=== PATIENT | male | born 1940 | race Caucasian/White ===

== ENCOUNTER 2024-03-04 05:03 | Emergency (ER) | payer MEDICARE, OTHER, SELFPAY ==
--- NOTE | 2024-03-04 05:11 | ECG_ITS ---
Test Date: 2024-03-04 05:18:20 Measurements Intervals [place] Rate: 58 P: 47 SD: 227 QRS: 1 QRSD: 77 T: 41 QT: 392 QTc: 388 Interpretive Statements SINUS BRADYCARDIA WITH FIRST DEGREE AV BLOCK No previous ECG available for comparison Electronically Signed On 03-04-2024 15:20:37 SUPPLY TECH by Javi Sultana M.D.
[2024-03-04 05:12] VITALS: BP 150/77; PULSE 63; RESP 15; TEMP 36.6; O2SAT 98
[2024-03-04 05:38] LABS: Basophils Percent Auto 0.3 % (0.2-1.2); Eosinophils Absolute Auto 0.3 K/mm3 (0-0.3); Eosinophils Percent Auto 4.5 % (0-4.4); Hematocrit 42.8 % (42.0-52.0); Hemoglobin 14.1 g/dL (14.0-18.0); Immature Granulocyte Absolute 0.02 K/mm3 (0.00-0.031); Immature Granulocyte Percent A 0.3 % (0-0.5); Lymphocytes Absolute Auto 1.88 K/mm3 (0.9-3.2); Lymphocytes Percent Auto 26.7 % (18.3-44.2); Mean Corpuscular HGB Conc 32.9 g/dl (32-36); Mean Corpuscular Volume 91.1 fl (80-100); Mean Platelet Volume 10.7 fl (7.4-10.4); Monocytes Absolute Auto 0.9 K/mm3 (0.1-0.6); Monocytes Percent Auto 12.2 % (2.6-8.5); Platelet Count Result 195 k/mm3 (150-375); Red Cell Distribution Width 12.9 % (11.5-14.5); White Blood Count 7.1 K/mm3 (4.5-10.0)
[2024-03-04 06:04] LABS: Alanine Aminotransferase 28 U/L (6-50); Albumin Level 3.8 g/dL (3.5-5.1); Alkaline Phosphatase 60 U/L (38-126); Anion Gap 6 mmol/L (4-12); Aspartate Amino Transferase 32 U/L (17-59); Bilirubin,Total 0.8 mg/dL (0.2-1.3); Blood Urea Nitrogen 19 mg/dL (9-20); Calcium 10.1 mg/dL (8.4-10.2); Carbon Dioxide 26 mmol/L (22-30); Chloride 105 mmol/L (98-107); Estimated CRCL calculation 79 ml/min; Estimated Glomerular Filt Rate > 60; Glucose 105 mg/dL (65-110); Potassium 3.9 mmol/L (3.4-5.0); Sodium 137 mmol/L (137-145)
[2024-03-04 06:15] LABS: Troponin I < 0.012 ng/mL (0.000-0.034)
--- NOTE | 2024-03-04 07:05 | ED.GENADULT ---
HPI - General Adult General Chief complaint: Extremity Injury, Upper <Diego Castillo MD - Last Filed: 03/04/24 07:12> Stated complaint: right arm pain <Diego Castillo MD - Last Filed: 03/04/24 07:12> Time Seen by Provider: 03/04/24 05:23 <Diego Castillo MD - Last Filed: 03/04/24 07:12> History of Present Illness HPI narrative: Patient is an 83-year-old male who presents to the emergency department this evening complaining of right arm pain. Patient states the pain started at 3:30 a.m. this morning when he woke up. Patient doctor his doctor who told him to come to the emergency department for further evaluation given his history of coronary artery disease with multiple stents. Patient states that he has absolutely no chest pain, no shortness of breath, no nausea or vomiting, states that the pain in his right arm is along his right shoulder, right elbow and right wrist mainly at the base of the thumb/1st digit. Patient admits that the pain is reproducible with certain movements. Admits that yesterday he did shovel some snow but states that he did not have any symptoms yesterday after shoveling snow. Denies any additional symptoms or concerns at this time. <Diego Castillo MD - Last Filed: 03/04/24 07:12> Related Data Home medications: Home Medications ?Medication ?Instructions ?Recorded ?Confirmed ?Last Taken ?Type ascorbic acid (vitamin C) 1,000 mg 1 g PO DAILY 11/03/21 10/24/23 Unknown History capsule aspirin 81 mg tablet,delayed 81 mg PO DAILY 11/03/21 10/24/23 Unknown History release clopidogrel 75 mg tablet 75 mg PO DAILY 11/03/21 10/24/23 Unknown History coenzyme Q10 100 mg capsule (Co 100 mg PO DAILY 11/03/21 10/24/23 Unknown History Q-10) cholecalciferol (vitamin D3) 125 5,000 unit PO DAILY 03/16/22 10/24/23 Unknown History mcg (5,000 unit) capsule ezetimibe 10 mg tablet (Zetia) 5 mg PO DAILY 03/16/22 10/24/23 Unknown History fexofenadine 60 mg tablet ([place] 60 mg PO Q12H PRN allergy 03/16/22 10/24/23 Unknown History Allergy) diclofenac sodium 1 % topical gel 2 g topical QID 10/24/23 10/24/23 Unknown History famotidine-Ca carb-mag hydrox 10 1 tablet PO DAILY PRN indigestion 10/24/23 10/24/23 Unknown History mg-800 mg-165 mg chewable tablet (Pepcid Complete) sildenafil 100 mg tablet 100 mg PO DAILY PRN 10/24/23 10/24/23 Unknown History sildenafil 100 mg tablet 100 mg PO DAILY PRN sexual activity 10/24/23 10/24/23 Unknown History <Diego Castillo MD - Last Filed: 03/04/24 07:12> Allergies/adverse reactions: Allergies Allergy/AdvReac Type Severity Reaction Status Date / Time No Known Allergies Verified 09/03/09 11:28 <Diego Castillo MD - Last Filed: 03/04/24 07:12> Review of Systems Review of Systems: All systems are reviewed and are negative unless stated otherwise in the HPI. <Diego Castillo MD - Last Filed: 03/04/24 07:12> PMFSH Past Medical History Medical History: Medical History GERD (gastroesophageal reflux disease) reflux with use of sildenafil Chronic pain of right knee Male erectile dysfunction, unspecified Lipoma of arm (~2022) 2.5 cm lipoma right upper arm biceps area BMI 30.0-30.9,adult At low risk for fall Elevated PSA, less than 10 ng/ml PSA 5.3 on 12/28/2022. PSA 8.4 with 18% free PSA on 10/02/2023. BMI 31.0-31.9,adult COVID-19 (04/27/22) 2nd episode Acute non-recurrent maxillary sinusitis COVID-19 (~08/2021) BMI 32.0-32.9,adult Obesity (BMI 30.0-34.9) Osteoarthritis involving multiple joints on both sides of body Chronic low back pain without sciatica BPH without obstruction/lower urinary tract symptoms Seasonal allergic rhinitis Essential hypertension GFR 92 on 10/02/2023. Atherosclerotic heart disease of [place] coronary artery without angina pectoris (~2003) Acute [facility] with 2 stents in the LAD 2003 with 4 drug-eluting stents in the RCA and PLV in December,. Mixed hyperlipidemia Total cholesterol 113, HDL 39, triglycerides 78, LDL 58 with glucose 98 on 07/06/2022. Total cholesterol 114, HDL 41, triglycerides 58, LDL 60 on 12/28/2022. total cholesterol 119, HDL 48, triglycerides 81, 8 LDL 55 on 10/02/2023. Heart attack Arthritis CAD (coronary artery disease) Allergies <Diego Castillo MD - Last Filed: 03/04/24 07:12> Family History Family History: Family History Mother Asthma Diabetes mellitus Hypertension Heart disease Other Hypertension Cancer <Diego Castillo MD - Last Filed: 03/04/24 07:12> Social History Social History: Social History Smoking status: Former smoker Smoking end date: 02/19/1962 Alcohol intake: current Alcohol use details: Social Substance use: never Substance use type: does not use Lack of Transportation: No Lack of Food: Never True Current Housing: I Have Housing Concerned About Future Housing: No Difficulty Paying Gas/Electric Bills: No Difficulty Paying for Meds: No Currently Unemployed: No Education: Bachelor's Degree Difficulty w/ Childcare or Family Care: No <Diego Castillo MD - Last Filed: 03/04/24 07:12> Exam Narrative: General: Alert, awake, afebrile, in no acute distress. HEENT: PERRL, no rhinorrhea, no post nasal drip, oropharynx clear. Neck: Trachea midline, no JVD, no lymphadenopathy. Cardiovascular: Regular rate and rhythm, no murmurs, rubs or gallops, no peripheral edema. Respiratory: Clear to auscultation bilaterally, no tachypnea, no wheezing, no rhonchi, no rubs, no respiratory distress. Abdomen: Soft, nontender, nondistended, no rebound, no guarding, no peritoneal signs. Musculoskeletal: No joint swelling or deformity, normal muscle tone, tenderness palpation along the base of the right thumb. Skin: No rashes or petechia, no signs of infection. Psychiatric: Alert and oriented, normal behavior and judgment for situation. Neurological: Alert and oriented to person, place, and time. Follows all commands. No focal deficits, speech is clear and fluent. <Diego Castillo MD - Last Filed: 03/04/24 07:12> Course Vital Signs Vital signs: Vital Signs Temperature 36.6 C 03/04/24 05:12 Pulse Rate 63 03/04/24 05:12 Respiratory Rate 15 03/04/24 05:12 Blood Pressure 150/77 H 03/04/24 05:12 Pulse Oximetry 98 03/04/24 05:12 Oxygen Delivery Room Air 03/04/24 05:12 Temperature 36.6 C 03/04/24 05:12 Pulse Rate 67 03/04/24 12:14 Respiratory Rate 16 03/04/24 12:14 Blood Pressure 159/64 H 03/04/24 12:14 Pulse Oximetry 97 03/04/24 12:14 Oxygen Delivery Room Air 03/04/24 05:12 <Diego Castillo MD - Last Filed: 03/04/24 07:12> Vital Signs Temperature 36.6 C 03/04/24 05:12 Pulse Rate 63 03/04/24 05:12 Respiratory Rate 15 03/04/24 05:12 Blood Pressure 150/77 H 03/04/24 05:12 Pulse Oximetry 98 03/04/24 05:12 Oxygen Delivery Room Air 03/04/24 05:12 Temperature 36.6 C 03/04/24 05:12 Pulse Rate 67 03/04/24 12:14 Respiratory Rate 16 03/04/24 12:14 Blood Pressure 159/64 H 03/04/24 12:14 Pulse Oximetry 97 03/04/24 12:14 Oxygen Delivery Room Air 03/04/24 05:12 <Radha Junior MD - Last Filed: 03/04/24 13:06> Medical Decision Making MDM Narrative Medical decision making narrative: PATIENT PRESENTS WITH RIGHT ARM PAIN, AFTER SHOVELING SNOW EKG ON ARRIVAL SHOWED SINUS BRADYCARDIA, PATIENT PATIENT TROPONIN IS WITHIN NORMAL LIMIT TIME 2, REPEATED EKG 3 HOURS LATER SHOWED NO ACUTE ABNORMALITIES. DISCHARGED HOME WITH ARM MUSCULAR PAIN TO TAKE TYLENOL NEEDED <Radha Junior MD - Last Filed: 03/04/24 13:06> Vital Signs Vital Signs: Vital Signs Temperature 36.6 C 03/04/24 05:12 Pulse Rate 63 03/04/24 05:12 Respiratory Rate 15 03/04/24 05:12 Blood Pressure 150/77 H 03/04/24 05:12 Pulse Oximetry 98 03/04/24 05:12 Oxygen Delivery Room Air 03/04/24 05:12 Temperature 36.6 C 03/04/24 05:12 Pulse Rate 67 03/04/24 12:14 Respiratory Rate 16 03/04/24 12:14 Blood Pressure 159/64 H 03/04/24 12:14 Pulse Oximetry 97 03/04/24 12:14 Oxygen Delivery Room Air 03/04/24 05:12 <Diego Castillo MD - Last Filed: 03/04/24 07:12> Vital Signs Temperature 36.6 C 03/04/24 05:12 Pulse Rate 63 03/04/24 05:12 Respiratory Rate 15 03/04/24 05:12 Blood Pressure 150/77 H 03/04/24 05:12 Pulse Oximetry 98 03/04/24 05:12 Oxygen Delivery Room Air 03/04/24 05:12 Temperature 36.6 C 03/04/24 05:12 Pulse Rate 67 03/04/24 12:14 Respiratory Rate 16 03/04/24 12:14 Blood Pressure 159/64 H 03/04/24 12:14 Pulse Oximetry 97 03/04/24 12:14 Oxygen Delivery Room Air 03/04/24 05:12 <Radha Junior MD - Last Filed: 03/04/24 13:06> Lab Data Result diagrams: 03/04/24 05:25 03/04/24 05:25 <Diego Castillo MD - Last Filed: 03/04/24 07:12> Labs: Lab Results 03/04/24 03/04/24 Range/Units 05:25 11:29 WBC 7.1 (4.5-10.0) K/mm3 RBC 4.70 (4.6-6.20) M/mm3 Hgb 14.1 (14.0-18.0) g/dL Hct 42.8 (42.0-52.0) % MCV 91.1 (80-100) fl MCH 30.0 (26-34) pg MCHC 32.9 (32-36) g/dl RDW 12.9 (11.5-14.5) % Plt Count 195 (150-375) k/mm3 MPV 10.7 H (7.4-10.4) fl Immature Gran % (Auto) 0.3 (0-0.5) % Neut % (Auto) 56.0 (45.5-73.1) % Lymph % (Auto) 26.7 (18.3-44.2) % [place] % (Auto) 12.2 H (2.6-8.5) % Eos % (Auto) 4.5 H (0-4.4) % Baso % (Auto) 0.3 (0.2-1.2) % Lymph # (Auto) 1.88 (0.9-3.2) K/mm3 [place] # (Auto) 0.9 H (0.1-0.6) K/mm3 Eos # (Auto) 0.3 (0-0.3) K/mm3 Baso # (Auto) 0.0 (0.0-0.1) K/mm3 Abs Immat Gran (auto) 0.02 (0.00-0.031) K/mm3 Absolute Neuts (auto) 4.0 (1.3-6.7) K/mm3 Absolute Nucleated RBC 0.000 (0.0-0.012) K/mm3 Nucleated RBC % 0.0 (0.0-0.2) % Sodium 137 (137-145) mmol/L Potassium 3.9 (3.4-5.0) mmol/L Chloride 105 (98-107) mmol/L Carbon Dioxide 26 (22-30) mmol/L Anion Gap 6 (4-12) mmol/L BUN 19 (9-20) mg/dL Creatinine 0.64 L (0.7-1.3) mg/dL Estim Creat Clear Calc 79 ml/min Estimated GFR > 60 (59 - ) Glucose 105 (65-110) mg/dL Calcium 10.1 (8.4-10.2) mg/dL Total Bilirubin 0.8 (0.2-1.3) mg/dL AST 32 (17-59) U/L ALT 28 (6-50) U/L Alkaline Phosphatase 60 (38-126) U/L Troponin I < 0.012 < 0.012 (0.000-0.034) ng/mL Total Protein 6.0 L (6.3-8.2) g/dL Albumin 3.8 (3.5-5.1) g/dL <Diego Castillo MD - Last Filed: 03/04/24 07:12> Lab Results 03/04/24 03/04/24 Range/Units 05:25 11:29 WBC 7.1 (4.5-10.0) K/mm3 RBC 4.70 (4.6-6.20) M/mm3 Hgb 14.1 (14.0-18.0) g/dL Hct 42.8 (42.0-52.0) % MCV 91.1 (80-100) fl MCH 30.0 (26-34) pg MCHC 32.9 (32-36) g/dl RDW 12.9 (11.5-14.5) % Plt Count 195 (150-375) k/mm3 MPV 10.7 H (7.4-10.4) fl Immature Gran % (Auto) 0.3 (0-0.5) % Neut % (Auto) 56.0 (45.5-73.1) % Lymph % (Auto) 26.7 (18.3-44.2) % [place] % (Auto) 12.2 H (2.6-8.5) % Eos % (Auto) 4.5 H (0-4.4) % Baso % (Auto) 0.3 (0.2-1.2) % Lymph # (Auto) 1.88 (0.9-3.2) K/mm3 [place] # (Auto) 0.9 H (0.1-0.6) K/mm3 Eos # (Auto) 0.3 (0-0.3) K/mm3 Baso # (Auto) 0.0 (0.0-0.1) K/mm3 Abs Immat Gran (auto) 0.02 (0.00-0.031) K/mm3 Absolute Neuts (auto) 4.0 (1.3-6.7) K/mm3 Absolute Nucleated RBC 0.000 (0.0-0.012) K/mm3 Nucleated RBC % 0.0 (0.0-0.2) % Sodium 137 (137-145) mmol/L Potassium 3.9 (3.4-5.0) mmol/L Chloride 105 (98-107) mmol/L Carbon Dioxide 26 (22-30) mmol/L Anion Gap 6 (4-12) mmol/L BUN 19 (9-20) mg/dL Creatinine 0.64 L (0.7-1.3) mg/dL Estim Creat Clear Calc 79 ml/min Estimated GFR > 60 (59 - ) Glucose 105 (65-110) mg/dL Calcium 10.1 (8.4-10.2) mg/dL Total Bilirubin 0.8 (0.2-1.3) mg/dL AST 32 (17-59) U/L ALT 28 (6-50) U/L Alkaline Phosphatase 60 (38-126) U/L Troponin I < 0.012 < 0.012 (0.000-0.034) ng/mL Total Protein 6.0 L (6.3-8.2) g/dL Albumin 3.8 (3.5-5.1) g/dL <Radha Junior MD - Last Filed: 03/04/24 13:06> ECG Data EKG #1: Attestation: I personally reviewed and interpreted this ECG as follows: <Radha Junior MD - Last Filed: 03/04/24 13:06> ECG completion date: 03/04/24 <Radha Junior MD - Last Filed: 03/04/24 13:06> Interpretation: SECOND EKG TODAY SHOWED SINUS BRADYCARDIA AT 56 BEATS PER MINUTE, COMPARED TO EKG EARLY TODAY NO SIGNIFICANT CHANGES <Radha Junior MD - Last Filed: 03/04/24 13:06> Critical Care Time Critical Care Time Critical Care Time: No <Radha Junior MD - Last Filed: 03/04/24 13:06> Discharge Plan Discharge Clinical Impression: Arm pain, right <Diego Castillo MD - Last Filed: 03/04/24 07:12> Patient Disposition: Home, Self-Care <Diego Castillo MD - Last Filed: 03/04/24 07:12> Condition: Stable <Diego Castillo MD - Last Filed: 03/04/24 07:12> Instructions: Arm Pain (ED) <Diego Castillo MD - Last Filed: 03/04/24 07:12> Additional Instructions: RETURN IF SYMPTOMS ARE WORSENING , CALL YOUR FAMILY PHYSICIAN FOR APPOINTMENT, TAKE TYLENOL NEEDED FOR ACHES AND PAIN, CONTINUE HOME MEDICATIONS. <Diego Castillo MD - Last Filed: 03/04/24 07:12> Patient Language: [place] <Diego Castillo MD - Last Filed: 03/04/24 07:12> Prescriptions: No Action aspirin 81 mg tablet,delayed release (DR/EC) 81 mg PO DAILY clopidogrel 75 mg tablet 75 mg PO DAILY coenzyme Q10 [Co Q-10] 100 mg capsule 100 mg PO DAILY ascorbic acid (vitamin C) 1,000 mg capsule 1 g PO DAILY ezetimibe [Zetia] 10 mg tablet 5 mg PO DAILY cholecalciferol (vitamin D3) 125 mcg (5,000 unit) capsule 5,000 unit PO DAILY fexofenadine [[place] Allergy] 60 mg tablet 60 mg PO Q12H PRN (Reason: allergy) sildenafil 100 mg tablet 100 mg PO DAILY PRN Patient Comments: prescribed by Urology Rx Instructions: administer 30 minutes to 4 hours before activity diclofenac sodium 1 % gel 2 g topical QID Patient Comments: [id number] Rx Instructions: apply to single elbow, wrist or hand; for hand includes palm/fingers/back of hand sildenafil 100 mg tablet 100 mg PO DAILY PRN (Reason: sexual activity) Patient Comments: 1/2 or 1 tablet daily as needed Rx Instructions: administer 30 minutes to 4 hours before activity Pepcid Complete 10-800-165 mg tablet,chewable 1 tablet PO DAILY PRN (Reason: indigestion) atenolol 25 mg tablet 25 mg PO DAILY Qty: 90 3RF tamsulosin [Flomax] 0.4 mg capsule 0.4 mg PO DAILY Qty: 90 3RF ramipril 2.5 mg capsule 2.5 mg PO DAILY Qty: 90 3RF rosuvastatin [Crestor] 40 mg tablet 40 mg PO DAILY Qty: 90 3RF <Diego Castillo MD - Last Filed: 03/04/24 07:12> Follow-up/Referrals: Logan Tomlinson MD [Primary Care Provider] - <Diego Castillo MD - Last Filed: 03/04/24 07:12>
[2024-03-04 08:25] VITALS: BP 144/88; PULSE 53; RESP 18; O2SAT 96
--- NOTE | 2024-03-04 11:18 | ECG_ITS ---
Test Date: 2024-03-04 11:41:35 Measurements Intervals [place] Rate: 56 P: 51 MD: 226 QRS: 9 QRSD: 75 T: 38 QT: 400 QTc: 388 Interpretive Statements SINUS BRADYCARDIA WITH FIRST DEGREE AV BLOCK Compared to ECG 03/04/2024 05:18:20 No significant changes Electronically Signed On 03-04-2024 15:28:41 TRAINER by Javi Sultana M.D.
[2024-03-04 12:06] LABS: Troponin I < 0.012 ng/mL (0.000-0.034)
[2024-03-04 12:14] VITALS: BP 159/64; PULSE 67; RESP 16; O2SAT 97
== END 2024-03-04 13:36 | disposition home or self-care (01) ==
PROVIDERS: Emergency Medicine; Emergency Provider Emergency Medicine; PCP Family Medicine
DX: M79.601 Pain in right arm (principal); R00.1 Bradycardia, unspecified; K21.9 Gastro-esophageal reflux disease without esophagitis; M19.90 Unspecified osteoarthritis, unspecified site; I10 Essential (primary) hypertension; I25.10 Atherosclerotic heart disease of native coronary artery without angina pectoris; E78.5 Hyperlipidemia, unspecified; I25.2 Old myocardial infarction
CPT/HCPCS: 36415; 80053; 84484; 85025; 93005; 99284